=== PATIENT | female | born 1950 | race Caucasian/White ===

== ENCOUNTER 2024-06-30 19:19 | Emergency (ER) | payer MEDICARE ==
[~2024-06-30] VITALS: Ht 152.4 cm; Wt 74.1 kg
[2024-06-30] MEDS ORDERED: Ketorolac 30 MG/ML VIAL IM ONE (20:00)
[2024-06-30] MEDS ORDERED: Orphenadrine 60 MG/2ML AMP IM ONE (20:00)
[2024-06-30 20:20] VITALS: BP 136/97
== END 2024-06-30 20:20 | disposition home or self-care (01) ==
LOC: ED 19:19
DX: S16.1XXA Strain of muscle, fascia and tendon at neck level, initial encounter (principal); M54.6 Pain in thoracic spine; X58.XXXA Exposure to other specified factors, initial encounter
CPT/HCPCS: J1885; J2360